=== PATIENT | male | born 1960 | race Caucasian/White ===

== ENCOUNTER → 2023-07-14 13:38 | Outpatient (REF) | payer MEDICARE, SELFPAY ==
[2023-07-15 15:59] LABS: tTG IgA Antibody 7.8 EU/ml (0-19); tTG IgG Antibody 5.2 EU/ml (0-19)
[2023-07-16 05:48] LABS: IgA 232 mg/dl (70-400)
[2023-07-16 22:51] LABS: Wheat <0.10 kU/L (<=0.34)
[2023-07-17 00:54] LABS: Gliadin Peptide (DGP) Ab, IgA <0.72 FLU (0.00-4.99); Gliadin Peptide (DGP) Ab, IgG <0.56 FLU (0.00-4.99)
[2023-07-17 01:45] LABS: Endomysial IgA Antibody Titer <1:10 (<1:10)
== END ==
LOC: HWLAB 13:38
PROVIDERS: ATTENDING PHYSICIAN Internal Medicine; FAMILY PHYSICIAN Family Medicine
DX: L13.0 Dermatitis herpetiformis (principal); Z91.018 Allergy to other foods
CPT/HCPCS: 36415; 82784; 83516; 86003; 86231; 86258

== ENCOUNTER → 2023-09-18 10:28 | Outpatient (REF) | payer MEDICARE, SELFPAY ==
[2023-09-18 11:53] LABS: % Basophils 0.6 % (0-2); % Eosinophils 17.2 % (0-6); % Immature Granulocytes 0.6 % (0-0.5); % Monocytes 9.2 % (1.7-9.3); % Neutrophils 61.4 % (42.2-75.2); Absolute Basophils 0.1 10^3/uL (0-0.2); Absolute Eosinophils 2.1 10^3/uL (0-0.7); Absolute Immature Granulocytes 0.1 10^3/uL (0-0.05); Absolute Lymphocytes 1.4 10^3/uL (1.2-3.4); Absolute Monocytes 1.1 10^3/uL (0.1-0.6); Absolute Neutrophils 7.6 10^3/uL (1.4-6.5); Hemoglobin 14.7 g/dL (13.0-18.0); Mean Corp Hgb Conc. 33.4 g/dL (33.0-37.0); Mean Corpuscular Hgb 30.9 pg (27.0-31.0); Mean Corpuscular Volume 92.4 fL (80.0-94.0); Mean Platelet Volume 10.1 fL (7.4-10.4); Nucleated Red Blood Cells % 0 % (-); Platelet Count 319 10^3/uL (130-400); Red Blood Cell Count 4.76 10^6/uL (4.70-6.10); Red Cell Dist. Width 13.2 % (11.5-14.5); White Blood Cell Count 12.3 10^3/uL (4.8-10.8)
[2023-09-18 13:24] LABS: ALT (SGPT) 34 U/L (0-50); AST (SGOT) 40 U/L (17-59); Alkaline Phosphatase 58 U/L (38-126); Blood Urea Nitrogen 16 mg/dl (9-20); Calcium 10.3 mg/dl (8.4-10.2); Carbon Dioxide 26 mmol/L (22-30); Chloride 106 mmol/L (98-107); Direct Bilirubin 0.3 mg/dl (0.0-0.4); Glucose 81 mg/dl (70-99); Potassium 4.4 mmol/L (3.5-5.1); Sodium 140 mmol/L (135-145); Total Bilirubin 1.3 mg/dl (0.2-1.3); Total Protein 6.6 g/dl (6.3-8.2); eGFR > 60.00
[2023-09-18 13:49] LABS: TSH Reflex To Free T4 1.85 uIU/ml (0.47-4.68)
[2023-09-18 14:37] LABS: HIV Combo Negative (Negative)
== END ==
LOC: HWLAB 10:28
PROVIDERS: ATTENDING PHYSICIAN Internal Medicine; FAMILY PHYSICIAN Family Medicine
DX: C81.90 Hodgkin lymphoma, unspecified, unspecified site (principal); R53.83 Other fatigue; D47.02 Systemic mastocytosis; E03.9 Hypothyroidism, unspecified; K83.1 Obstruction of bile duct; B20 Human immunodeficiency virus [HIV] disease
CPT/HCPCS: 36415; 71046; 80053; 82248; 83520; 84443; 85025; 87389

== ENCOUNTER → 2023-10-07 12:58 | Outpatient (REF) | payer MEDICARE, SELFPAY ==
[2023-10-07 16:20] LABS: % Basophils 0.5 % (0-2); % Eosinophils 10.7 % (0-6); % Immature Granulocytes 0.3 % (0-0.5); % Lymphocytes 13.6 % (20.5-51.1); % Monocytes 10.6 % (1.7-9.3); % Neutrophils 64.3 % (42.2-75.2); Absolute Basophils 0.1 10^3/uL (0-0.2); Absolute Eosinophils 1.1 10^3/uL (0-0.7); Absolute Lymphocytes 1.3 10^3/uL (1.2-3.4); Absolute Neutrophils 6.3 10^3/uL (1.4-6.5); Hematocrit 39.6 % (39.0-52.0); Hemoglobin 13.3 g/dL (13.0-18.0); Mean Corp Hgb Conc. 33.6 g/dL (33.0-37.0); Mean Corpuscular Hgb 29.8 pg (27.0-31.0); Mean Corpuscular Volume 88.8 fL (80.0-94.0); Mean Platelet Volume 10.6 fL (7.4-10.4); Nucleated Red Blood Cells % 0 % (-); Platelet Count 355 10^3/uL (130-400); Red Blood Cell Count 4.46 10^6/uL (4.70-6.10); Red Cell Dist. Width 13.3 % (11.5-14.5); White Blood Cell Count 9.8 10^3/uL (4.8-10.8)
[2023-10-07 16:27] LABS: Iron 65 ug/dl (49-181)
[2023-10-07 16:36] LABS: Percent Saturation 23 % (20-50); Total Iron Binding Capacity 281 ug/dl (261-462)
[2023-10-07 17:35] LABS: Folate 5.9 ng/ml (2.76-20); Vitamin B12 448 pg/ml (239-931)
== END ==
LOC: HWLAB 12:58
PROVIDERS: FAMILY PHYSICIAN Family Medicine
DX: R53.83 Other fatigue (principal); D72.10 Eosinophilia, unspecified; D53.9 Nutritional anemia, unspecified; K50.90 Crohn's disease, unspecified, without complications; K50.00 Crohn's disease of small intestine without complications
CPT/HCPCS: 36415; 82607; 82728; 82746; 83521; 83540; 83550; 84155; 84156; 84165; 85025; 86335

== ENCOUNTER → 2023-10-16 13:03 | Outpatient (REF) | payer MEDICARE, SELFPAY | LOC: RAD 13:03 | PROVIDERS: ATTENDING PHYSICIAN Registered Nurse; FAMILY PHYSICIAN Family Medicine | DX: Z13.6 Encounter for screening for cardiovascular disorders (principal); M79.89 Other specified soft tissue disorders; I82.493 Acute embolism and thrombosis of other specified deep vein of lower extremity, bilateral | CPT/HCPCS: 76770; 93970 ==